=== PATIENT | female | born 1950 | race Caucasian/White ===

== ENCOUNTER → 2018-04-22 | Day surgery (SDC) | payer MEDICARE ==
[2018-04-15 11:18] LABS: BASOPHILS # (AUTO) 0.1 (0.0-0.1); BASOPHILS % 1.5 % (0.0-1.0); EOSINOPHILS # (AUTO) 0.6 (0.0-0.4); EOSINOPHILS % 8.2 % (0.0-6.0); HEMATOCRIT 36.6 % (34.2-44.1); HEMOGLOBIN 12.1 g/dL (12.0-16.0); LYMPHOCYTES % 30.1 % (18.0-39.1); MEAN CORPUSCULAR HEMOGLOBIN 30.3 pg (28-32); MEAN CORPUSCULAR HGB CONC 33.1 g/dL (31-35); MEAN CORPUSCULAR VOLUME 91.7 fL (81-99); MONOCYTES # (AUTO) 0.6 (0.2-0.8); MONOCYTES % 8.2 % (4.4-11.3); NEUTROPHILS # (AUTO) 3.5 (2.1-6.9); NEUTROPHILS % 51.7 % (38.7-80.0); PLATELET COUNT 226 x10e3/uL (140-360); RED BLOOD COUNT 3.99 x10e6/uL (3.6-5.1); RED CELL DISTRIBUTION WIDTH 13.5 % (11.7-14.4)
[~2018-04-22] MED LIST: ALBUTEROL0.63 MG/3 INH; ASPIR 8181 MG PO; ATORVASTATIN CA20 MG PO; CENTRUM SILVER1 EAC3 PO; EPHEDRINE SULFATE INJ 50 MG/10 ML SYR ONE; FENTANYL CITRATE/PF 100MCG/2 ML INJ ONE; FLUTICASONE PO; METOPROLOL SUCC25 MG PO; MIDAZOLAM HCL 2 MG/2 ML VIAL ONE; PROPOFOL IV EMULSION 10 MG/ML 20 ML VIAL ONE; SYMBICORT 16010.2 GM INH
--- NOTE | 2018-04-22 10:50 | Operative Report ---
DATE OF PROCEDURE: April 22, 2018 PROCEDURE PERFORMED: Colonoscopy. PREOPERATIVE DIAGNOSIS: Colon cancer screening. POSTOPERATIVE DIAGNOSES 1. A 4-mm size, benign, sessile polyp in the descending colon, removed with hot biopsy forceps. 2. Diverticulosis throughout the colon, but no diverticulitis. PREOPERATIVE MEDICATIONS: Consisted of MAC anesthesia. DESCRIPTION OF PROCEDURE: Using the [employer] video colonoscope, it was inserted in the patient's rectum and advanced without difficulty to the level of the cecum. The colon was studied from that level back down to the rectum. Diverticula were present throughout the entire colon without evidence of diverticulitis. In the mid descending colon, a 4-mm size, benign, sessile polyp was seen and removed with hot biopsy forceps. The colonoscope was withdrawn back to the rectum, and the procedure was ended. In conclusion, we have findings of benign, 4-mm size polyp in the mid descending colon and diverticulosis of the colon. Job#: [id number]
== END | disposition home or self-care (01) ==
LOC: OR 07:24
PROVIDERS: ATTEND Internal Medicine Gastroenterology
DX: Z12.11 Encounter for screening for malignant neoplasm of colon (principal); K63.5 Polyp of colon; K57.30 Diverticulosis of large intestine without perforation or abscess without bleeding; K21.9 Gastro-esophageal reflux disease without esophagitis; B18.2 Chronic viral hepatitis C; I25.2 Old myocardial infarction; I25.810 Atherosclerosis of coronary artery bypass graft(s) without angina pectoris; I10 Essential (primary) hypertension; R00.1 Bradycardia, unspecified; Z88.5 Allergy status to narcotic agent; Z01.810 Encounter for preprocedural cardiovascular examination; Z01.812 Encounter for preprocedural laboratory examination; Z79.82 Long term (current) use of aspirin; Z95.1 Presence of aortocoronary bypass graft; Z87.891 Personal history of nicotine dependence; Z80.0 Family history of malignant neoplasm of digestive organs
CPT/HCPCS: 36415; 45384; 85025; 88305; 93005; J2250

== ENCOUNTER → 2021-05-28 | Outpatient (CLI) | payer MEDICARE ==
[~2021-05-28] MED LIST changes: -EPHEDRINE SULFATE INJ 50 MG/10 ML SYR ONE; -FENTANYL CITRATE/PF 100MCG/2 ML INJ ONE; +IOPAMIDOL 370 MG/ML 200 ML INFUS..BTL INJ ONE; -MIDAZOLAM HCL 2 MG/2 ML VIAL ONE; -PROPOFOL IV EMULSION 10 MG/ML 20 ML VIAL ONE; +SODIUM CHLORIDE 0.9% 100 ML ONE
== END ==
LOC: CT 13:04
PROVIDERS: ATTEND Internal Medicine
DX: I65.22 Occlusion and stenosis of left carotid artery (principal)
CPT/HCPCS: 70498; J7050; Q9967